=== PATIENT | male | born 1995 | race Caucasian/White ===

== ENCOUNTER 2024-08-09 15:50 | Emergency (ER) | payer OTHER, SELFPAY ==
[2024-08-09 15:55] VITALS: BP 128/85; PULSE 72; TEMP 36.8; O2SAT 98; BMI 30.1
--- NOTE | 2024-08-09 16:03 | ED.GENADUL1 ---
HPI HPI - General Adult General Chief complaint: Wound/Laceration Stated complaint: Laceration Time Seen by Provider: 08/09/24 15:58 Source: patient Mode of arrival: walk-in Limitations: no limitations History of Present Illness HPI narrative: 28-year-old male presents to the emergency department for a chief complaint of injury to his left thumb. 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 It has been more than 10 years since he had a tetanus shot. There is a small amount of bleeding which then stopped. Related Data Allergies Allergy/AdvReac Type Severity Reaction Status Date / Time No Known Drug Allergies Allergy Verified 08/09/24 15:54 Review of Systems ROS Narrative A ten point review of systems is negative except as noted above. PFSH PFSH Social History Little interest or pleasure in doing things: not at all Feeling down, depressed, or hopeless: not at all Exam Narrative Exam Narrative: Nurses note and vital signs reviewed and patient is not hypoxic. General: The patient appears well and in no apparent distress. Patient is resting comfortably on cart. Skin: Warm, dry, no pallor noted. There a small avulsion of skin on his left thumb adjacent to the nail and a very small portion of the nail was missing as well. No active bleeding or other wounds present. Head: Normocephalic, atraumatic Eye: Normal conjunctiva, no drainage Ears, Nose, Mouth, and Throat: oral mucosa is moist. Nares patent. Cardiovascular: Regular Rate and Rhythm Respiratory: Patient is in no distress, no accessory muscle use Back: non-tender GI: Soft and nontender Musculoskeletal: Left thumb IP joint has full range of motion Neurological: A&O, normal speech Psychiatric: Cooperative Constitutional Vital Signs, click to edit/add: Last Vital Signs Temp 98.2 F 08/09/24 15:55 Pulse 72 08/09/24 15:55 Resp 16 08/09/24 15:55 BP 128/85 08/09/24 15:55 Pulse Ox 98 08/09/24 15:55 O2 Del Method Room Air 08/09/24 15:55 Course Vital Signs Vital signs: Vital Signs Temperature 98.2 F 08/09/24 15:55 Pulse Rate 72 08/09/24 15:55 Respiratory Rate 16 08/09/24 15:55 Blood Pressure 128/85 08/09/24 15:55 Pulse Oximetry 98 08/09/24 15:55 Oxygen Delivery Method Room Air 08/09/24 15:55 Temperature 98.2 F 08/09/24 15:55 Pulse Rate 72 08/09/24 15:55 Respiratory Rate 16 08/09/24 15:55 Blood Pressure 128/85 08/09/24 15:55 Pulse Oximetry 98 08/09/24 15:55 Oxygen Delivery Method Room Air 08/09/24 15:55 Medical Decision Making MDM Narrative Medical decision making narrative: Tetanus status is updated. Tube gauze applied, application checked by me and found to be appropriate, he is neurovascularly intact. Treatment diagnosis and follow-up were discussed with the patient. Sutures are not indicated Differential Diagnosis Differential Diagnosis: Skin avulsion, laceration Discharge Plan Discharge Chief Complaint: Wound/Laceration Clinical Impression: Avulsion of skin Patient Disposition: Home, Self-Care Time of Disposition Decision: 16:01 Condition: Good Mode of Transportation: Private Vehicle Print Language: Czech Instructions: Skin Avulsion (ED) Additional Instructions: Leave tube gauze on for 48 hours. Apply bandage daily. Referrals: Physician,Non-Staff, MD [Primary Care Provider] - 1 week
[2024-08-09] MEDS: ADACEL DIPH,PERTUSS(ACELL),TET VAC/PF 0.5 ML ADULT SYRINGE IM (16:27)
== END 2024-08-09 16:59 | disposition home or self-care (01) ==
PROVIDERS: Emergency Provider Emergency Medicine
DX: S61.002A Unspecified open wound of left thumb without damage to nail, initial encounter (principal); W27.4XXA Contact with kitchen utensil, initial encounter; Z23 Encounter for immunization
CPT/HCPCS: 90471; 90715; 99284

== ENCOUNTER 2024-08-15 11:12 | Emergency (ER) | payer OTHER, SELFPAY ==
[2024-08-15 11:26] VITALS: BP 121/89; PULSE 77; TEMP 36.7; O2SAT 96; BMI 17.2
--- NOTE | 2024-08-15 13:56 | ED_ITS ---
HPI HPI - General Adult General Chief complaint: Recheck/Abnormal Lab/Rx Stated complaint: [facility] UPPER EXTREMITY RECHECK - FINGER Time Seen by Provider: 08/15/24 11:30 Source: patient Mode of arrival: walk-in Limitations: no limitations History of Present Illness HPI narrative: 28-year-old male to the emergency department chief complaint of wound evaluation. Patient reports that he had a small cut on his left thumb. He wants to make sure it is healed well and he may return to work. He has no concerns otherwise. Related Data Allergies Allergy/AdvReac Type Severity Reaction Status Date / Time No Known Drug Allergies Allergy Verified 08/09/24 15:54 Review of Systems ROS Status of ROS 10 or more systems reviewed and unremark able except as noted in history and below PFSH PFSH Social History Little interest or pleasure in doing things: not at all Feeling down, depressed, or hopeless: not at all Exam Narrative Exam Narrative: Left hand: Radial pulse intact. Sensation intact over the hand. [employer] Lead strength finger abduction abduction wrist extension are intact. Compartments are soft. Cap refill intact in each digit. There is what appears to be a near completely healed wound near the radial lateral nail fold of the thumb. Constitutional Vital Signs, click to edit/add: Last Vital Signs Temp 98.1 F 08/15/24 11:26 Pulse 77 08/15/24 11:26 Resp 16 08/15/24 11:26 BP 121/89 08/15/24 11:26 Pulse Ox 96 08/15/24 11:26 O2 Del Method Room Air 08/15/24 11:26 Course Vital Signs Vital signs: Vital Signs Temperature 98.1 F 08/15/24 11:26 Pulse Rate 77 08/15/24 11:26 Respiratory Rate 16 08/15/24 11:26 Blood Pressure 121/89 08/15/24 11:26 Pulse Oximetry 96 08/15/24 11:26 Oxygen Delivery Method Room Air 08/15/24 11:26 Temperature 98.1 F 08/15/24 11:26 Pulse Rate 77 08/15/24 11:26 Respiratory Rate 16 08/15/24 11:26 Blood Pressure 121/89 08/15/24 11:26 Pulse Oximetry 96 08/15/24 11:26 Oxygen Delivery Method Room Air 08/15/24 11:26 Medical Decision Making MDM Narrative Medical decision making narrative: Well-healed laceration. No evidence of infection or other issues. He may return to work immediately. Medical Records Medical records reviewed: Yes I reviewed the patient's medical records Discharge Plan Discharge Chief Complaint: Recheck/Abnormal Lab/Rx Clinical Impression: Encounter for wound re-check Patient Disposition: Home, Self-Care Time of Disposition Decision: 12:21 Condition: Good Mode of Transportation: Private Vehicle Print Language: Nigerien Instructions: Laceration (ED) Additional Instructions: MAY RETURN TO WORK IMMEDIATELY Referrals: Physician,Non-Staff, MD [Primary Care Provider] - 1 week Discharge Date/Time: 08/15/24 12:38
== END 2024-08-15 12:38 | disposition home or self-care (01) ==
PROVIDERS: Emergency Provider Student in an Organized Health Care Education/Training Program
DX: S61.012D Laceration without foreign body of left thumb without damage to nail, subsequent encounter (principal); X58.XXXD Exposure to other specified factors, subsequent encounter
CPT/HCPCS: 99281